=== PATIENT | female | born 1990 | race Caucasian/White ===

== ENCOUNTER 2017-06-07 19:41 | Emergency (ER) | payer SELFPAY ==
[~2017-06-07] VITALS: Ht 165.1 cm; Wt 90.0 kg
[~2017-06-07 19:41] MED LIST: CITA20TA9 PO; FERR325T5 PO; NOTE
[2017-06-07 19:43] VITALS: TEMP 36.8; Ht 165.1 cm; Wt 90.0 kg
--- NOTE | 2017-06-07 20:11 | EMERGENCY ROOM VISIT NOTE ---
History First contact with patient: 19:48 Chief Complaint: ANKLE PAIN Stated Complaint: RT ANKLE PAIN History of Present Illness The patient is a 27 year old female who presents to the Emergency Room with complaints of right ankle pain. The patient reports that this morning, she was walking down her basement steps when they collapsed. She states it is a flight of 6-7 steps. She rolled her right ankle when this occurred. She denies any other injuries. There is no pain in the left foot or ankle and no back pain. She states there is pain along the outside of the ankle and into the foot. Her right fifth toe feels numb. She was seen at urgent care this morning and they wrapped her ankle and discharged her. She states her pain has increased throughout the day and she has been screaming due to uncontrolled pain. She rates her current discomfort as 7/10 and states she did take ibuprofen prior to arrival which helped slightly. Review of Systems A complete 6 point review of systems was reviewed with the patient with pertinent positives and negatives as per history of present illness. All else were negative. Past Medical/Surgical History Medical Problems: (1) Colitis Social History Smoking Status: Never Smoker Marital Status: single Housing Status: lives with family Occupation Status: student Current/Historical Medications Scheduled Citalopram Hydrobromide (Celexa), 20 MG PO DAILY Ferrous Sulfate (Ferrous Sulfate), 325 MG PO DAILY Miscellaneous Medications [Note] Physical Exam Vital Signs Date Time Temp Pulse Resp B/P (MAP) Pulse Ox O2 Delivery O2 Flow Rate FiO2 06/07/17 21:44 91 18 129/84 96 06/07/17 19:43 36.8 123 20 128/85 96 Room Air Physical Exam VITALS: Vitals are noted on the nurse's note and reviewed by myself. Vital signs stable. GENERAL: This is a 27-year-old female, in no acute distress, nondiaphoretic, well-developed well-nourished. SKIN: No ecchymosis, lacerations or abrasions. MUSCULOSKELETAL: No obvious deformity of the right foot/ankle. There is moderate soft tissue swelling over the lateral ankle and dorsal foot. There is tenderness to palpation to the lateral aspect of the ankle as well as the heel. Decreased range of motion secondary to patient discomfort. Dorsalis pedis pulse 2+. NEURO: Patient was alert and oriented to person place and time. Sensation intact over all 5 toes of the right foot. Medical Decision & Procedures ER Provider Diagnostic Interpretation: RIGHT ANKLE 3 VIEWS; RIGHT FOOT 3 VIEWS CLINICAL HISTORY: Right foot and ankle injury. Pain. FINDINGS: 3 views of the right foot and 3 views of the right ankle are obtained. No prior studies are available for comparison at the time of dictation. The skeletal structures are well mineralized. No fracture is identified at the ankle joint. The ankle mortise is intact. A small bone island is incidentally noted in the distal tibial shaft. There is a small ankle joint effusion. Mild soft tissue swelling is seen around the ankle. No fracture is identified in the right foot. The joint spaces of the foot are maintained. An os naviculari is incidentally noted. There is a tiny dorsal calcaneal enthesophyte. Mild dorsal soft tissue swelling suggested. IMPRESSION: 1. Soft tissue swelling and joint effusion with no radiographic evidence of right ankle fracture. 2. There is no radiographic evidence of right foot fracture. Medical Decision Differential diagnosis includes fracture, contusion, sprain, dislocation, among others. The patient was evaluated as above. X-rays of the right ankle and foot were obtained and read by radiology with no acute findings. The patient was placed in a gel splint and crutches. She was advised to follow-up closely with orthopedics for further evaluation. Conservative measures were discussed with the patient. She was agreeable with this plan of care. She verbalized understanding of my assessment and treatment plan and was discharged home in good condition. Medication Reconcilliation Current Medication List: was personally reviewed by mi Blood Pressure Screening Patient's blood pressure: Normal blood pressure Impression Primary Impression: Right ankle pain Departure Information Dispostion Home / Self-Care Condition GOOD Referrals Dom Mayes, DO Patient Instructions My [facility] Additional Instructions You have been treated in the Emergency Department for an Ankle injury. For pain control, you can use the following crgk-eoh-ufcykde medicines (if >12 yo): - Regular strength (325mg/tab) Tylenol (acetaminophen) 2 tabs every 4-6 hours as needed. Do not exceed 12 tablets in a 24 hour period. Avoid taking more than 4 grams (4000 mg) of Tylenol per day. This includes any other sources of acetaminophen you may take on a regular basis. - Regular strength (200 mg/tab) Advil (ibuprofen) 1-2 tabs every 4-6 hours as needed. Do not exceed a dose of 3200 mg per day. If this is a recent injury (<24 hrs), ice can be applied to the area of pain for the first 3 days to help decrease pain and inflammation. You have been provided the number for an Orthopaedic Surgeon. You should call this number as soon as possible to establish a follow-up visit from today's Emergency Department visit. Keep the ankle brace/splint in place until cleared by Orthopedics. Use the crutches you have been provided to keep ALL weight off of the ankle until weight bearing is tolerable. Return to the Emergency Department if your current symptoms worsen despite treatment course outlined above, or if you develop any of the following symptoms : intractable pain despite aforementioned treatment course or new onset of numbness or tingling of the foot. Problem Qualifiers Primary Impression: Right ankle pain Chronicity: acute Qualified Codes: M25.571 - Pain in right ankle and joints of right foot
--- NOTE | 2017-06-07 21:02 | DIAGNOSTIC IMAGING REPORT ---
RIGHT ANKLE 3 VIEWS; RIGHT FOOT 3 VIEWS CLINICAL HISTORY: Right foot and ankle injury. Pain. FINDINGS: 3 views of the right foot and 3 views of the right ankle are obtained. No prior studies are available for comparison at the time of dictation. The skeletal structures are well mineralized. No fracture is identified at the ankle joint. The ankle mortise is intact. A small bone island is incidentally noted in the distal tibial shaft. There is a small ankle joint effusion. Mild soft tissue swelling is seen around the ankle. No fracture is identified in the right foot. The joint spaces of the foot are maintained. An os naviculari is incidentally noted. There is a tiny dorsal calcaneal enthesophyte. Mild dorsal soft tissue swelling suggested. IMPRESSION: 1. Soft tissue swelling and joint effusion with no radiographic evidence of right ankle fracture. 2. There is no radiographic evidence of right foot fracture. Electronically signed by: Darnell Wu M.D. 06/07/2017 9:00 PM Dictated Date/Time: 06/07/2017 8:57 PM
[2017-06-07 21:44] VITALS: BP 129/84; PULSE 91; O2SAT 96
== END 2017-06-07 21:46 | disposition home or self-care (01) ==
LOC: C.EDB 19:41 → C.EDD 21:46
DX: S99.911A Unspecified injury of right ankle, initial encounter (principal); M25.571 Pain in right ankle and joints of right foot; M25.471 Effusion, right ankle; X50.9XXA Other and unspecified overexertion or strenuous movements or postures, initial encounter

== ENCOUNTER 2024-12-22 03:33 | Observation (INO) ==
[2024-12-22 03:46] VITALS: BP 124/80; PULSE 96
[2024-12-22 04:06] VITALS: RESP 16
[2024-12-22] MEDS ORDERED: LIDOCAINE 1% LOCAL 20 ML VIAL INFIL PRN (04:50)
[2024-12-22] MEDS ORDERED: OXYTOCIN 30 UNITS/NSS 30 UNITS/500 ML BAG IV PRN (04:50)
--- NOTE | 2024-12-22 04:53 | History & Physical Report ---
Date of Service December 22, 2024 Assessment & Plan (1) premature rupture of membranes (PPROM) with unknown onset of labor: Plan: At this time, patient is showing ctx Q2-5 on monitor - feeling them about every 15 minutes, not painful. Cervix closed, cerclage intact. Will try to get her transferred to facility with NICU, as not in active labor at this time. Celestone ordered. Plan for latency antibiotics - ampicillin 2g IV, azithro 1g PO. History of Present Illness Chief Complaint: leaking fluid Primary Care Provider: NO PCP 34yo @ 32w3d, presented to L&D after gush of clear fluid at home at 12:30am this morning. She is feeling + movement, no vaginal bleeding. Feeling contractions about every 15 minutes. complicated by short cervix, had Mayes cerclage placed at [place] at 20w, is using vaginal progesterone. club feet. Advanced maternal age. Allergies Allergy/AdvReac Type Severity Reaction Status Date / Time sulfamethoxazole Allergy Intermediate Hives Verified 12/22/24 04:27 trimethoprim Allergy Intermediate Hives Verified 12/22/24 04:27 Bactrim Allergy Mild . Unverified 10/06/12 13:05 Home Medications Medication Instructions Recorded Confirmed Type citalopram 10 mg tablet (Celexa) 40 mg PO HS 06/24/19 12/22/24 History buspirone 10 mg tablet 10 mg PO DAILY 12/15/23 12/22/24 History lamotrigine 150 mg tablet 150 mg PO HS 12/15/23 12/22/24 History (Lamictal) omeprazole 40 mg capsule,delayed 40 mg PO DAILY 12/15/23 12/22/24 History release PNV [id number] 1 tab PO DAILY 06/19/24 12/22/24 History [ Gummies] ferrous sulfate 325 mg (65 mg 325 mg PO BID 12/22/24 12/22/24 History iron) tablet Patient History Medical History (Updated 12/22/24 @ 04:58 by Lydia Valladares DO) SAB (spontaneous ) 12/2023- cytotec Incompetence of cervix rescue cerclage placed at 20 weeks Reflux esophagitis Migraine without aura Depression with anxiety (10/03/11) Uterine polyp Bipolar 2 disorder Varicella vaccination Ulcer, gastric, acute Colitis (07/05/12) Surgical History History of gynecologic surgery uterine polyps History of cholecystectomy lap dylan 2021 H/O wisdom tooth extraction Family History Grandmother (Maternal) Heart disease Grandfather (Paternal) Heart disease Denies family history of Ovarian cancer Breast cancer Colorectal cancer Uterine cancer Social History (Updated 12/22/24 @ 03:54 by Sheree Cedeno, RN) Smoking Status: Former smoker Do You Dip or Chew Tobacco: No; Hx Alcohol Use: No Hx Substance Use: No Preferred Language: [place] Visual Impairment: No Limitations Space [employer] Required: No Beliefs That Will Affect Care: None marital status: Single marital status details: kaur Cuenca ([phone] Current Living Situation: Significant Other Current Living Situation Comment: lives with fob, dog,cat-fob changing litter current occupational status: employed current occupation: [employer] Other Information That Helps Us Care for You: No Feels Safe at Home: Yes Safety Concerns: Feels Safe At This Time Review of Systems All systems reviewed & are unremarkable except as noted in HPI & below Physical Exam Physical Exam: FHT Cat 1, reactive NST [place] Q 2-5 Sterile speculum exam: cervix visually closed, no bleeding, cerclage visible. +pooling, +ferning, +nitrizine SVE: closed/thick/high Limited bedside ultrasound: cephalic presentation, DVP 6cm Constitutional: WD/WN, vitals as above Respiratory: normal respiratory effort, lungs clear to auscultation no respiratory distress Cardiovascular: Rate/Rhythm: regular rate and regular rhythm Gastrointestinal (Abdomen): Inspection/Auscultation: abdomen normal to inspection Percussion/Palpation: abdomen soft; abdomen nontender Gravid. No s/s chorio or abruption. Skin: no rashes, warm and dry Psychiatric: A+Ox3, euthymic affect Results & Data Vital Signs (Past 12 Hours) Vital Signs Temp Pulse Resp BP 12/22/24 03:50 37.1 C 16 12/22/24 03:45 96 H 124/80 Coding Level of Care Code None Diagnoses premature rupture of membranes (PPROM) with unknown onset of labor O42.919
[2024-12-22] MEDS: BETAMETH SOD PHOS/ACETATE IA 6 MG/ML ONE (04:55)
[2024-12-22] MEDS: BETAMETH SOD PHOS/ACETATE IA 6 MG/ML IM STA (05:10)
--- NOTE | 2024-12-22 05:14 | Obstetrical Progress Note ---
Date of Service December 22, 2024 Assessment & Plan Admission and Anticipated Discharge Date Admission Date: December 22, 2024 Subjective Update: I spoke with [facility], agreeable to transfer. OB accepting doctor Dr Kidd, room [id number]. Reviewed consent to transfer with patient, she is agreeable. Results & Data Vital Signs (Past 12 Hours) Vital Signs Temp Pulse Resp BP 12/22/24 03:50 37.1 C 16 12/22/24 03:45 96 H 124/80 PG Care Time/CCT Total # of Minutes Spent Total Time Spent with Patient: Total time spent is greater than 50% in coordination of care (as documented) at patient's floor/unit and/or counseling patient: Coding Level of Care Code None
[2024-12-22] MEDS: LACTATED RINGER'S 1,000 ML IV PRN (05:34)
[2024-12-22] MEDS: AMPICILLIN 2,000 MG in SODIUM CHLORIDE 0.9% 50 ML IV SCH (05:47)
[2024-12-22] MEDS: AZITHROMYCIN 250 MG TAB PO ONE (05:49)
[2024-12-22] MEDS ORDERED: ONDANSETRON INJ 2 MG/ML 2 ML VIAL IV PRN (06:38)
[2024-12-22] MEDS: ONDANSETRON INJ 2 MG/ML 2 ML VIAL ONE (06:39)
[2024-12-22 07:32] VITALS: TEMP 98.6
[2024-12-22] MEDS ORDERED: SODIUM CHLOR 0.9% IV SCH (12:00)
[2024-12-22] MEDS ORDERED: AMPICILLIN IV SCH (12:00)
[2024-12-22] MEDS ORDERED: MINI B IV SCH (12:00)
--- NOTE | 2024-12-27 00:24 | Discharge Summary ---
Date of Service December 27, 2024 Admission HPI Per Admitting Provider 34yo @ 32w3d, presented to L&D after gush of clear fluid at home at 12:30am this morning. She is feeling + movement, no vaginal bleeding. Feeling contractions about every 15 minutes. complicated by short cervix, had Mayes cerclage placed at [place] at 20w, is using vaginal progesterone. club feet. Advanced maternal age. Admission Exam (Per Admitting) Constitutional WD/WN, vitals as above Respiratory normal respiratory effort, lungs clear to auscultation no respiratory distress Cardiovascular Rate/Rhythm: regular rate and regular rhythm Gastrointestinal (Abdomen) Inspection/Auscultation: abdomen normal to inspection Percussion/Palpation: abdomen soft; abdomen nontender Skin no rashes, warm and dry Psychiatric A+Ox3, euthymic affect Hospital Course (1) premature rupture of membranes (PPROM) with unknown onset of labor: At this time, patient is showing ctx Q2-5 on monitor - feeling them about every 15 minutes, not painful. Cervix closed, cerclage intact. Will try to get her transferred to facility with NICU, as not in active labor at this time. Celestone ordered. Plan for latency antibiotics - ampicillin 2g IV, azithro 1g PO. Coding Level of Care Code None Diagnoses premature rupture of membranes (PPROM) with unknown onset of labor O42.919
== END 2024-12-22 06:50 | disposition short-term general hospital (02) | DRG 831 ==
LOC: OPB 03:33 → 4S1 03:39 → INTOOBSV 04:50